=== PATIENT | male | born 1985 | race African-American/Black ===

== ENCOUNTER 2020-09-23 09:38 | Emergency (ER) | payer OTHER ==
[~2020-09-23] VITALS: Ht 193 cm; Wt 94.3 kg
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
--- NOTE | 2020-09-23 09:45 | NUR ---
SEEN AND EXAMINED BY .
[2020-09-23] MEDS ORDERED: IBUP-1955 PO (10:00)
--- NOTE | 2020-09-23 10:01 | NUR ---
DIRECTOR ORGANIZATIONAL AT BEDSIDE FOR XRAY.
--- NOTE | 2020-09-23 10:20 | NUR ---
CALLED [facility] [phone] DR. CANNON WILL CALL US BACK.
[2020-09-23] MEDS ORDERED: ACETAMINOPHEN 325 MG TABLET ONE (10:24)
[2020-09-23] MEDS ORDERED: ACETAMINOPHEN 325 MG TABLET PO ONE (10:30)
--- NOTE | 2020-09-23 10:41 | NUR ---
IV LINE ESTABLISHED BLOOD DRAWN AND SENT TO LAB.
--- NOTE | 2020-09-23 10:44 | NUR ---
CALLED [facility] [phone] PERCY ARZATE IS FOR TerrajouleERS. AND THEY ARE AT [facility].
--- NOTE | 2020-09-23 10:45 | NUR ---
CALLED [facility] [phone] FOR TRANSFER. REFERED TO [facility].
--- NOTE | 2020-09-23 10:45 | NUR ---
PT IS WHEELED TO CT SCAN VIA [facility].
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
--- NOTE | 2020-09-23 11:00 | NUR ---
URINAL GIVEN BUT UNABLE TO PROVIDE URINE SPECIMEN THIS TIME.
[2020-09-23 11:08] LABS: BASOPHILS % (AUTO) 0.7 % (0.0-2.0); EOSINOPHILS % (AUTO) 5.7 % (0.0-6.0); HEMATOCRIT 38 % (39-51); HEMOGLOBIN 12.3 g/dL (13.5-17.5); LYMPHOCYTES # (AUTO) 1.4 /CMM (0.8-4.8); LYMPHOCYTES % (AUTO) 25.4 % (20.0-44.0); MEAN CORPUSCULAR HGB CONC 33 g/dl (31.0-36.0); MEAN CORPUSCULAR VOLUME 93 fL (80-96); MONOCYTES # (AUTO) 0.7 /CMM (0.1-1.30); MONOCYTES % (AUTO) 12.9 % (2.0-12.0); NEUTROPHILS # (AUTO) 3.1 /CMM (1.8-8.9); NEUTROPHILS % (AUTO) 55.3 % (43.0-81.0); PLATELET COUNT (AUTO) 231 /CMM (150-450); RED BLOOD CELL COUNT(AUTO) 4.07 MIL/uL (4.5-6.0); WHITE BLOOD COUNT (AUTO) 5.5 K/uL (4.3-11.0)
--- NOTE | 2020-09-23 11:25 | NUR ---
CALLED [facility] [phone] ER CHARGE NURSE SUSANA NOT ACCEPTING.
--- NOTE | 2020-09-23 11:30 | NUR ---
JORGE called Storage Center Manager, Juanlurdes Arango (desk) [phone] and called his (cell) [phone] to gather collateral information.No answer & JORGE left voicemail.
[2020-09-23 11:32] LABS: CALCIUM, SERUM 8.8 mg/dL (8.5-10.1); CARBON DIOXIDE 29 mmol/L (21-32); CHLORIDE 104 mmol/L (98-107); CREATININE 0.8 mg/dL (0.6-1.3); GLUCOSE 83 mg/dL (74-106); POTASSIUM 3.9 mmol/L (3.5-5.1); SODIUM SERUM 140 mmol/L (136-145); UREA NITROGEN, BLOOD 8 mg/dL (7-18)
--- NOTE | 2020-09-23 11:32 | NUR ---
CALLED [facility] NO BED AVAILABLE AT THIS TIME.
--- NOTE | 2020-09-23 11:33 | NUR ---
PT REFUSED COVID TESTING.
--- NOTE | 2020-09-23 11:35 | NUR ---
CALLED [facility] [phone] NO BEDS PER MIGUEL A
[2020-09-23 11:38] LABS: ALCOHOL, BLOOD < 3 mg/dL (0-0)
--- NOTE | 2020-09-23 11:45 | NUR ---
CALLED [facility] [phone] AT [facility] NO BEDS AVAILABLE.
--- NOTE | 2020-09-23 11:55 | NUR ---
CALLED [facility] RODRIGUE[facility] TO SUP
--- NOTE | 2020-09-23 13:05 | NUR ---
JORGE called Artisan Plasterer, Juanlurdes Arango (desk) [phone] and called his (cell) [phone] to gather collateral information. No answer & JORGE left voicemail.
--- NOTE | 2020-09-23 13:36 | NUR ---
FOOD TRAY PROVIDED.
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
--- NOTE | 2020-09-23 15:30 | NUR ---
Per the pt.s Agent of Record, Gabriel Guillen [phone] the pt. has been informed that he must report to [[address] for [place].
--- NOTE | 2020-09-23 16:15 | NUR ---
"SS consult: SW met with pt. who stated that he is experiencing homelessness. SW provided the pt. with homeless resources including: Substance Abuse resources [facility] Substance Abuse Self-Helpline ([facility]) ; CRI [facility]LP [address] [facility]. [place] [address] ; [facility] [place] [address] [facility] [address] ; [facility] [address] [facility]. [place] [id number] ; [facility] [address] [facility] [id number] ; [facility] 4940 [facility] [address] ; [facility] 909 [facility] [id number] ; [facility] Substance Abuse Helpline([facility] ; [facility] ; [facility]; [facility] [place]; [facility] [place]; [facility] [place]; [facility] [place]; [facility]; [facility] [place]; Alcoholics Anonymous -SFV; Fw-Fepb-Gyjhwei ; Marijuana Anonymous -[facility]V; Narcotics Anonymous www.na.org. Year-round shelters: [facility] [address] [place] [place] [address] ; [facility] [address] [place] [address]; [facility] [place] [facility]. [facility] [address] Winter Shelters: Stas Haas [place] Provider: [facility] [place] Address: [address], [address] # of Beds: 47 Population Served: [facility] 6 | [facility] Elisa Solis [place] Provider: [facility] Address: [address] [place] [address], [address] # of Beds: 66 Population Served: [facility] [place] Provider: [facility] Address: [address] [facility], [address] # of Beds: 56 Population Served: [facility] [place] [place] Provider: /[facility] Address: [address] [facility], [address] # of Beds: 49 Population Served: [facility] 8 | [facility] Provider: First to Serve Address: [address] [facility], [address] # of Beds: 37 Population Served: [facility] Hygiene: [facility]: [address] [facility] ; [facility] [address] [facility] ; [facility] 6907 [facility] . Food Resources: [place] [facility] at [facility]- [address] [facility]; Meet Each Need with Dignity ([facility]) [address] [facility]; [facility] Food Pantry 4395 [facility]; [facility] 8539 [facility]. Mental Health resources provided: [facility] [address] [place] [address] ; [facility] [address] [facility] [address], [place] [address] ; [facility] Mental [facility] [address] [place] [address] ; [facility] [place] [address] Healthcare Clinics: [facility] [address] [facility], [address] [place]. [place] ; [facility] [address] [facility] [address] [place] [address]; [facility] [address] [facility] [place] [address] [phone] The pt. was receptive & accepted resources. The pt. refused to sign the homeless waiver stating, My hand is swollen. JORGE placed homeless waiver in pt.s chart for nurse to attempt to have pt. sign upon pt. being transferred/discharged. JORGE spoke with the charge nurse & MD regarding this pt."
--- NOTE | 2020-09-23 19:59 | NUR ---
PT REFUSING TO HAVE A COVID SWAB.
--- NOTE | 2020-09-23 20:01 | NUR ---
JOSE RAMONID SWABBED, SENT TO LAB.
--- NOTE | 2020-09-23 21:02 | NUR ---
covid negative per lab
[2020-09-23] MEDS ORDERED: KETOROLAC TROMETHAMINE INJ 60 MG/2 ML VIAL IM ONE ×2 (22:06→22:30)
--- NOTE | 2020-09-23 22:15 | NUR ---
PT C/O KNEE PAIN. ER MD AWARE. ORDERED 60MG TORADOL IM XNOW.
--- NOTE | 2020-09-24 01:51 | NUR ---
PT CURSING AT STAFF AFTER BEING TOLD THERE IS NO FOOD AVAILABLE AT THE MOMENT.
--- NOTE | 2020-09-24 03:12 | NUR ---
CALLED [facility], NO BEDS AVAILABLE AT THIS TIME
--- NOTE | 2020-09-24 03:20 | NUR ---
CALLED [facility], NO BEDS AVAILABLE AT THIS TIME
--- NOTE | 2020-09-24 03:25 | NUR ---
[facility], NO [facility] AVAILABLE AT THIS TIME
--- NOTE | 2020-09-24 04:03 | NUR ---
PT REFUSING TO HAVE VITALS TAKEN.
--- NOTE | 2020-09-24 05:19 | NUR ---
PT CONTINIOUSLY URINATING ON THE FLOOR. PT AWARE THERE ARE TWO URINALS ON THE BED'S SIDE RAILS.
[2020-09-24 07:30] VITALS: BP 122/68
--- NOTE | 2020-09-24 08:30 | NUR ---
Patient ambulating with steady gait in hallway towards the door. He was asked to go back to his bed but said that he wants to leave.
--- NOTE | 2020-09-24 08:37 | NUR ---
Patient continued to walk towards the door and seen heading toward the street
--- NOTE | 2020-09-24 08:54 | NUR ---
JORGE called the pt.s Agent of Record, Gabriel Guillen [phone] to notify him that the pt. has left AMA this morning and SW provided homeless resources yesterday. Gabriel expressed understanding and stated he will document this.
== END 2020-09-24 08:41 | disposition left against medical advice (07) ==
LOC: ER 09:40
DX: S82.141A Displaced bicondylar fracture of right tibia, initial encounter for closed fracture (principal); V03.90XA Pedestrian on foot injured in collision with car, pick-up truck or van, unspecified whether traffic or nontraffic accident, initial encounter; Y92.89 Other specified places as the place of occurrence of the external cause; J45.909 Unspecified asthma, uncomplicated; S82.831A Other fracture of upper and lower end of right fibula, initial encounter for closed fracture; M25.461 Effusion, right knee; Z20.822 Contact with and (suspected) exposure to COVID-19
CPT/HCPCS: 36415; 71045; 73564; 73590; 73700; 80048; 80320; 85025; 85610; 86850; 87426; 93005; 96372; 99285; C9803; J1885; G0480